=== PATIENT | female | born 1995 | race Two or more races ===

== ENCOUNTER 2019-04-12 14:01 | Emergency (ER) | payer SELFPAY ==
[~2019-04-12] VITALS: Ht 152.4 cm; Wt 54.4 kg
[2019-04-12] MEDS ORDERED: IV NORMAL SALINE 1000ML BAG 1,000 ML IV ONE (16:00)
[2019-04-12 16:04] LABS: BASO % 0 % (0-3); EOS # 0.8 x10^3/uL (0.0-0.7); EOS % 11 % (0-3); HEMATOCRIT 36.4 % (36.0-47.0); HEMOGLOBIN 12.6 g/dL (12.0-15.5); LYMPH # 2.2 x10^3/uL (1.0-4.8); LYMPH % 28 % (24-48); MEAN CORPUSCULAR HEMOGLOBIN 31 pg (25-35); MEAN CORPUSCULAR HGB CONC 35 g/dL (31-37); MEAN CORPUSCULAR VOLUME 90 fL (79-100); MONO # 0.7 x10^3/uL (0.0-1.1); MONO % 8 % (0-9); NEUT # 4.3 x10^3/uL (1.8-7.7); NEUT % 53 % (31-73); PLATELET COUNT 296 x10^3/uL (140-400); RED BLOOD COUNT 4.04 x10^6/uL (3.50-5.40); RED CELL DISTRIBUTION WIDTH 15.6 % (11.5-14.5)
[2019-04-12 16:17] LABS: CALCIUM 8.7 mg/dL (8.5-10.1); CREATININE 0.5 mg/dL (0.6-1.0); GFR 154.3; POTASSIUM 3.8 mmol/L (3.5-5.1)
[2019-04-12 16:20] LABS: ALBUMIN 3.5 g/dL (3.4-5.0); ALBUMIN/GLOBULIN RATIO 0.9 (1.0-1.7); TOTAL BILIRUBIN 0.3 mg/dL (0.2-1.0); TOTAL PROTEIN 7.2 g/dL (6.4-8.2)
[2019-04-12 16:28] LABS: BILIRUBIN,URINE NEGATIVE (NEG); CLARITY,URINE TURBID; COLOR,URINE YELLOW; NITRITE,URINE NEGATIVE (NEG); PROTEIN,URINE NEGATIVE (NEG-TRACE); UROBILINOGEN,URINE 0.2 mg/dL (0.2 mg/dL)
[2019-04-12 16:42] LABS: AMORPHOUS SEDIMENT,UR PRESENT /HPF; BACTERIA,URINE FEW /HPF (0-FEW); RBC,URINE 0 /HPF (0-2); SQUAMOUS EPITHELIAL CELL,UR FEW /LPF; WBC,URINE OCC /HPF (0-4)
--- NOTE | 2019-04-12 17:12 | PHYS DOC ---
Past Medical History Past Medical History: No Pertinent History Past Surgical History: No Surgical History Alcohol Use: None Drug Use: None Adult General Chief Complaint Chief Complaint: ABDOMINAL PAIN IN HPI HPI 23-year-old female presents to ER for complaints of being approximately 3 months and having some vaginal vomiting 2 days ago. Patient states she's been having lower abdominal pain into her lower back. Patient is uncertain of her LMP. This makes her 2 para 1 and she was seen at a clinic 2 months ago and informed she was 2 months along. Didn't denies diarrhea but states she has had intermittent nausea and vomiting. One episode of emesis today. Patient states she has had urinary frequency. Patient has been taking vitamins. She denies any recent sexual intercourse. Review of Systems Review of Systems Constitutional: Denies fever or chills [] Eyes: Denies change in visual acuity, redness, or eye pain [] HENT: Denies nasal congestion or sore throat [] Respiratory: Denies cough or shortness of breath [] Cardiovascular: No additional information not addressed in HPI [] GI: Denies abdominal pain, nausea, vomiting, bloody stools or diarrhea [] : Denies dysuria or hematuria [] Musculoskeletal: Denies back pain or joint pain [] Integument: Denies rash or skin lesions [] Neurologic: Denies headache, focal weakness or sensory changes [] Endocrine: Denies polyuria or polydipsia [] All other systems were reviewed and found to be within normal limits, except as documented in this note. Current Medications Current Medications Current Medications Medications (Trade) Dose Ordered Sig/Chelo Start Time Stop Time Status Last Admin Dose Admin Sodium Chloride 1,000 ml @ 1,000 mls/hr 1X ONCE 04/12/19 16:00 04/12/19 16:59 DC 04/12/19 15:58 1,000 MLS/HR Allergies Allergies Allergies Coded Allergies Type Severity Reaction Last Updated Verified No Known Drug Allergies 04/12/19 No Physical Exam Physical Exam Constitutional: Well developed, well nourished, no acute distress, non-toxic appearance. [] HENT: Normocephalic, atraumatic, bilateral external ears normal, oropharynx m oist, no oral exudates, nose normal. [] Eyes: PERRLA, EOMI, conjunctiva normal, no discharge. [] Neck: Normal range of motion, no tenderness, supple, no stridor. [] Cardiovascular:Heart rate regular rhythm, no murmur [] Lungs & Thorax: Bilateral breath sounds clear to auscultation [] Abdomen: Bowel sounds normal, soft, no tenderness, no masses, no pulsatile masses. [] Skin: Warm, dry, no erythema, no rash. [] Back: No tenderness, no CVA tenderness. [] Extremities: No tenderness, no cyanosis, no clubbing, ROM intact, no edema. [] Neurologic: Alert and oriented X 3, normal motor function, normal sensory function, no focal deficits noted. [] Psychologic: Affect normal, judgement normal, mood normal. [] Current Patient Data Vital Signs Vital Signs Date Time Temp Pulse Resp B/P (MAP) Pulse Ox O2 Delivery O2 Flow Rate FiO2 04/12/19 18:51 64 107/72 (84) 99 Room Air 04/12/19 15:00 97.5 16 97.5 Lab Values Laboratory Tests Test 04/12/19 14:55 04/12/19 16:00 04/12/19 17:08 Urine Collection Type Unknown Urine Color Yellow Urine Clarity Turbid Urine pH 8.0 Urine Specific [place] 1.010 Urine Protein Negative mg/dL (NEG-TRACE) Urine Glucose (UA) Negative mg/dL (NEG) Urine Ketones (Stick) Negative mg/dL (NEG) Urine Blood Negative (NEG) Urine Nitrite Negative (NEG) Urine Bilirubin Negative (NEG) Urine Urobilinogen Dipstick 0.2 mg/dL (0.2 mg/dL) Urine Leukocyte Esterase Trace (NEG) Urine RBC 0 /HPF (0-2) Urine WBC Occ /HPF (0-4) Urine Squamous Epithelial Cells Few /LPF Urine Amorphous Sediment Present /HPF Urine Bacteria Few /HPF (0-FEW) POC Urine HCG, Qualitative Hcg positive (Negative) White Blood Count 8.0 x10^3/uL (4.0-11.0) Red Blood Count 4.04 x10^6/uL (3.50-5.40) Hemoglobin 12.6 g/dL (12.0-15.5) Hematocrit 36.4 % (36.0-47.0) Mean Corpuscular Volume 90 fL (79-100) Mean Corpuscular Hemoglobin 31 pg (25-35) Mean Corpuscular Hemoglobin Concent 35 g/dL (31-37) Red Cell Distribution Width 15.6 % (11.5-14.5) H Platelet Count 296 x10^3/uL (140-400) Neutrophils (%) (Auto) 53 % (31-73) Lymphocytes (%) (Auto) 28 % (24-48) Monocytes (%) (Auto) 8 % (0-9) Eosinophils (%) (Auto) 11 % (0-3) H Basophils (%) (Auto) 0 % (0-3) Neutrophils # (Auto) 4.3 x10^3/uL (1.8-7.7) Lymphocytes # (Auto) 2.2 x10^3/uL (1.0-4.8) Monocytes # (Auto) 0.7 x10^3/uL (0.0-1.1) Eosinophils # (Auto) 0.8 x10^3/uL (0.0-0.7) H Basophils # (Auto) 0.0 x10^3/uL (0.0-0.2) Maternal Serum HCG Beta Subunit 269793 mIU/mL (0-5) H Sodium Level 140 mmol/L (136-145) Potassium Level 3.8 mmol/L (3.5-5.1) Chloride Level 103 mmol/L (98-107) Carbon Dioxide Level 28 mmol/L (21-32) Anion Gap 9 (6-14) Blood Urea Nitrogen 6 mg/dL (7-20) L Creatinine 0.5 mg/dL (0.6-1.0) L Estimated GFR (Cockcroft-Gault) 154.3 BUN/Creatinine Ratio 12 (6-20) Glucose Level 96 mg/dL (70-99) Calcium Level 8.7 mg/dL (8.5-10.1) Total Bilirubin 0.3 mg/dL (0.2-1.0) Aspartate Amino Transferase (AST) 21 U/L (15-37) Alanine Aminotransferase (ALT) 31 U/L (14-59) Alkaline Phosphatase 67 U/L (46-116) Total Protein 7.2 g/dL (6.4-8.2) Albumin 3.5 g/dL (3.4-5.0) Albumin/Globulin Ratio 0.9 (1.0-1.7) L Lipase 151 U/L (73-393) Chlamydia DNA Probe Negative (Negative) Neisseria gonorrhoeae DNA Probe Negative (Negative) Laboratory Tests 04/12/19 16:00 Laboratory Tests 04/12/19 16:00 Microbiology 04/12/19 Wet Prep - Final, Complete 04/12/19 Urine Culture - Final, Complete 04/12/19 Urine Culture Result 1 ([facility]) - Final, Complete EKG EKG [] Radiology/Procedures Radiology/Procedures Pelvic Exam: DIEGO You present 1705 Abdomen: External Genitalia: Normal Skin- no rash/lesions Speculum: Normal vaginal mucosa, cervical os closed. No blood/clots/tissue in vaginal vault. Yellowish discharge no odor Bimanual: No adnexal masses- diffuse tenderness suprapubic/bilat. adnexa, No CMT Course & Med Decision Making Course & Med Decision Making Pertinent Labs and Imaging studies reviewed. (See chart for details) [] Dragon Disclaimer Dragon Disclaimer This electronic medical record was generated, in whole or in part, using a voice recognition dictation system. Departure Departure Impression: Primary Impression: Abdominal pain during Additional Impression: Bacterial vaginosis Disposition: HOME, SELF-CARE Condition: STABLE Referrals: NO PCP (PCP) NESTOR STEVENS MD Patient Instructions: Abdominal Pain During , Bacterial Vaginosis Additional Instructions: It is important for you to get an [employer] doctor for further care during your . It is important for you to have follow-up and care for reevaluation. Plenty of water daily and eat well-balanced meals. Tylenol as needed for pain as directed on container. Continue your vitamins as prescribed. Scripts Metronidazole (FLAGYL) 500 Mg Tablet 1 TAB PO BID, #14 TAB 0 Refills No drinking alcohol while taking this medication and for 3 days after completion Prov: ELY BUCKLEY APRN 04/12/19 Problem Qualifiers ELY BUCKLEY APRN Apr 12, 2019 17:12
--- NOTE | 2019-04-12 18:49 | RAD ---
INDICATION: Suprapubic pain in COMPARISON: None. TECHNIQUE: Grayscale and color ultrasound images uterus and adnexa. FINDINGS: Uterus: 100 x 74 x 52 mm. Intrauterine gestational sac is identified with a pole with a positive heartbeat of 168. Yolk sac is visualized. [place]-rump length is 29 mm Right Ovary: 32 x 17 x 14 mm. Left Ovary: 38 x 25 x 17 mm. Vascular flow identified to bilateral ovaries. Too early in to adequately assess placenta. IMPRESSION: 1. Intrauterine is identified with a positive heartbeat and estimated gestational age of 9 weeks and 5 days. Recommend routine anomaly screening at 18-22 weeks. Electronically signed by: Myles Fried MD (04/12/2019 6:46 PM) [facility]
[2019-04-12 18:51] VITALS: BP 107/72
[2019-04-12] MEDS ORDERED: METR500T PO (19:10)
[2019-04-13 17:13] LABS: GC PROBE Negative (Negative)
== END 2019-04-12 19:31 | disposition home or self-care (01) ==
LOC: ER 14:01
DX: O23.591 Infection of other part of genital tract in pregnancy, first trimester (principal); B96.89 Other specified bacterial agents as the cause of diseases classified elsewhere; R10.30 Lower abdominal pain, unspecified; O21.8 Other vomiting complicating pregnancy; Z3A.09 9 weeks gestation of pregnancy
CPT/HCPCS: 36415; 76801; 80053; 81001; 81025; 83690; 84702; 85025; 86900; 86901; 87086; 87491; 87591; 96360; 99285; J7030; Q0111

== ENCOUNTER 2019-09-14 08:12 | Observation (INO) | payer SELFPAY ==
[~2019-09-14 08:12] MED LIST: METR500T PO
[2019-09-14] MEDS ORDERED: IV RINGERS,LACTATED 1000ML 1,000 ML IV SCH (08:14)
[2019-09-14] MEDS ORDERED: ACETAMINOPHEN 325 MG TABLET. PO PRN (08:15)
[2019-09-14] MEDS ORDERED: ONDANSETRON PF 4 MG/2 ML VIAL. IV PRN (08:15)
[2019-09-14] MEDS ORDERED: MAG HYDROX/ALUMINUM HYD/SIMETH 30 ML ORAL.SUSP PO PRN (08:15)
[2019-09-14 10:05] LABS: BILIRUBIN,URINE NEGATIVE (NEG); CLARITY,URINE CLEAR; COLOR,URINE YELLOW; NITRITE,URINE NEGATIVE (NEG); PROTEIN,URINE NEGATIVE (NEG-TRACE)
[2019-09-14 10:21] LABS: BARBITURATES NEG (NEG); BENZODIAZEPINES NEG (NEG); CANNABINOIDS NEG (NEG); COCAINE NEG (NEG); METHADONE NEG (NEG); OPIATES NEG (NEG); PHENCYCLIDINE NEG (NEG)
[2019-09-14 10:22] LABS: AMPHETAMINE/METHAMPHETAMINE NEG (NEG)
[2019-09-14 10:32] LABS: SQUAMOUS EPITHELIAL CELL,UR MOD /LPF
[2019-09-14 10:35] LABS: RBC,URINE 0 /HPF (0-2)
[2019-09-14 10:36] LABS: BACTERIA,URINE FEW /HPF (0-FEW)
--- NOTE | 2019-09-14 11:45 | RAD ---
EXAM: OBSTETRIC ULTRASOUND WITH BIOPHYSICAL PROFILE. HISTORY: Decreased movement. COMPARISON: None. FINDINGS: Sonographic evaluation of the uterus, fetus and maternal pelvis was performed with biophysical profile. There is a single fetus in vertex presentation. heart rate is 137 bpm. The renal collecting systems are dilated bilaterally. The renal collecting systems measure 14 mm on the left and 8 mm on the right. The bladder is not visualized in this study. The placenta is anterior. There is no evidence of placenta previa. Amniotic fluid volume appears normal with amniotic fluid index 14.8 cm. Biophysical profile score: 8/8. breathin. tone: 2. movement: 2. Amniotic fluid volume: 2. The maternal adnexa are obscured by positioning currently. IMPRESSION: 1. Biophysical profile score: 8/8. 2. Single fetus in vertex presentation. heart rate 137 bpm. 3. Both renal collecting systems are dilated. Correlate for posterior urethral valves or other causes. Ongoing follow-up/management is recommended. Electronically signed by: Cee Hawkins MD (09/14/2019 11:42 AM) [facility]
== END 2019-09-14 11:13 | disposition home or self-care (01) ==
LOC: 3 SO LND 08:12
PROVIDERS: ADMIT Obstetrics & Gynecology; ATTEND Obstetrics & Gynecology
DX: O36.8130 Decreased fetal movements, third trimester, not applicable or unspecified (principal); O26.893 Other specified pregnancy related conditions, third trimester; M54.9 Dorsalgia, unspecified; Z3A.36 36 weeks gestation of pregnancy
CPT/HCPCS: 76819; 80307; 81001; 87086; G0378; G0379

== ENCOUNTER 2019-10-14 15:20 | Observation (INO) | payer SELFPAY ==
[2019-10-14] MEDS ORDERED: IV RINGERS,LACTATED 1000ML 1,000 ML IV PRN (15:30)
[2019-10-14 16:24] LABS: BILIRUBIN,URINE NEGATIVE (NEG); CLARITY,URINE CLOUDY; COLOR,URINE YELLOW; NITRITE,URINE NEGATIVE (NEG); PH,URINE 7.5; PROTEIN,URINE NEGATIVE (NEG-TRACE); UROBILINOGEN,URINE 0.2 mg/dL (0.2 mg/dL)
[2019-10-14 16:33] LABS: RBC,URINE 0 /HPF (0-2)
[2019-10-14 16:34] LABS: BACTERIA,URINE FEW /HPF (0-FEW); SQUAMOUS EPITHELIAL CELL,UR MOD /LPF
== END 2019-10-14 17:30 | disposition home or self-care (01) ==
LOC: 3 SO LND 15:20
PROVIDERS: ADMIT Obstetrics & Gynecology; ATTEND Obstetrics & Gynecology
DX: O21.2 Late vomiting of pregnancy (principal); O26.893 Other specified pregnancy related conditions, third trimester; M79.604 Pain in right leg; R10.9 Unspecified abdominal pain; Z3A.36 36 weeks gestation of pregnancy
CPT/HCPCS: 81001; 87086; G0378; G0379